=== PATIENT | male | born 1970 | race Caucasian/White ===

== ENCOUNTER 2017-10-31 19:25 | Emergency (ER) | payer MEDICAID ==
[~2017-10-31] VITALS: Ht 182.9 cm; Wt 102.1 kg
[~2017-10-31 19:25] MED LIST: ALLO300T2 PO; ALPR1TAB10 PO; ATEN100T PO; BACL20TA PO; CLOP75TA41 PO; DICL50TA2 PO; FENO160T8 PO; GABA300C10 PO; LISI-646 PO
[2017-10-31 19:32] VITALS: BP 138/94
== END 2017-10-31 22:53 | disposition home or self-care (01) ==
LOC: EDBD 19:25 → ER 19:25
DX: S00.33XA Contusion of nose, initial encounter (principal); I10 Essential (primary) hypertension; E78.5 Hyperlipidemia, unspecified; M10.9 Gout, unspecified; F17.210 Nicotine dependence, cigarettes, uncomplicated; F12.10 Cannabis abuse, uncomplicated
CPT/HCPCS: 70450; 70486; 72125

== ENCOUNTER 2018-02-23 14:36 | Inpatient (IN) | payer MEDICAID ==
[~2018-02-23] VITALS: Ht 182.9 cm; Wt 100.5 kg
[2018-02-23 15:34] LABS: Basophils # (auto) 0.1 uL; Basophils % (auto) 0.9 % (0.0-2.0); Eosinophils # (auto) 0.2 uL; Eosinophils % (auto) 1.7 % (0.0-7.0); Hematocrit 51.9 % (41.0-53.0); Hemoglobin 17.5 g/dL (13.5-17.5); Lymphocytes # (auto) 1.7 uL; Lymphocytes % (auto) 15.7 % (10.0-50.0); Mean Corpuscular Hemoglobin 29.3 pg (28.0-32.0); Mean Corpuscular Hgb Conc. 33.7 g/dL (32.0-36.0); Mean Corpuscular Volume 87.1 fL (80.0-100.0); Monocytes # (auto) 0.7 uL; Monocytes % (auto) 6.2 % (0.0-12.0); Neutrophils # (auto) 8.1 uL; Neutrophils % (auto) 75.5 % (37.0-80.0); Nucleated Red Blood Cells % 0.1 %; Platelet Count (auto) 274 10^3/uL (140-450); Red Blood Cells 5.97 10^6/uL (4.5-5.90); Red Cell Distribution Width 15.6 % (11.8-14.3); White Blood Cell 10.8 10^3/uL (4.4-10.8)
[2018-02-23] MEDS ORDERED: cloNIDine HCL 0.1 MG TAB PO ONE (15:45)
[2018-02-23] MEDS ORDERED: MORPHINE SULFATE 4 MG/ML SYR/VIAL IV ONE ×2 (15:45→18:00)
[2018-02-23] MEDS ORDERED: ONDANSETRON HCL 4 MG/2 ML VIAL IV ONE ×2 (15:45→18:00)
[2018-02-23] MEDS ORDERED: ASPirin 81 mg TAB PO ONE (15:45)
[2018-02-23 15:49] LABS: INR 0.95 (0.9-1.15); Partial Thromboplastin Time 28.5 sec (23.78-33.04); Prothrombin Time 10.2 sec (9.27-12.13)
[2018-02-23 15:52] LABS: Alanine Aminotransferase 30 U/L (16-61); Albumin 4.2 g/dL (3.4-5.0); Anion Gap 15 (5-15); Aspartate Aminotransferase 22 U/L (15-37); BUN/Creatinine Ratio 12.6; Blood Urea Nitrogen 15 mg/dL (7-18); Carbon Dioxide 21 mmol/L (21-32); Chloride 106 mmol/L (98-107); GFR African American 84 mL/min; GFR Non-African American 69 mL/min; Glucose 103 mg/dL (74-106); Magnesium 2.2 mg/dL (1.6-2.6); Potassium 3.6 mmol/L (3.5-5.1); Sodium 142 mmol/L (136-145)
[2018-02-23 15:57] LABS: Alkaline Phosphatase 79 U/L (45-117); Bilirubin, Total 0.5 mg/dL (0.2-1.0); Total Protein 7.9 g/dL (6.4-8.2)
[2018-02-23] MEDS ORDERED: hydrALAZINE HCL 20 MG/ML VL IV ONE (17:00)
[2018-02-23 17:28] LABS: Amphetamine Screen, Urine NEGATIVE (NEGATIVE); Barbiturate Scree,Urine NEGATIVE (NEGATIVE); Benzodiazephine Screen, Urine NEGATIVE (NEGATIVE); Cannabinoid Screen, Urine POSITIVE (NEGATIVE); Cocaine Screen, Urine NEGATIVE (NEGATIVE); Opiate Scree,Urine NEGATIVE (NEGATIVE); Phencyclidine Screen, Urine NEGATIVE (NEGATIVE)
[2018-02-23] MEDS ORDERED: NITROGLYCERIN 0.4 MG SL TAB SL PRN ×2 (19:00)
[2018-02-23] MEDS ORDERED: ZOLPIDEM TARTRATE 5 MG TAB PO PRN (19:00)
[2018-02-23] MEDS ORDERED: LORazepam 0.5 MG TAB PO PRN (19:00)
[2018-02-23] MEDS ORDERED: ALUM & MAG HYDROX-SIMETH LIQ(MAALOX) 30 ML PO ONE (19:00)
[2018-02-23] MEDS ORDERED: ACETAMINOPHEN 325 MG TAB PO PRN (19:00)
[2018-02-23] MEDS ORDERED: ONDANSETRON HCL 4 MG/2 ML VIAL IV PRN (19:00)
[2018-02-23] MEDS ORDERED: CYCLOBENZAPRINE HCL 10 MG TAB PO PRN (19:00)
[2018-02-23] MEDS ORDERED: ASPirin 81 mg TAB PO SCH (19:08)
[2018-02-23] MEDS ORDERED: cloNIDine HCL 0.1 MG TAB PO PRN (19:15)
[2018-02-23] MEDS ORDERED: LABETALOL HCL 5 MG/ML ML 20ML VIAL IV PRN (19:15)
[2018-02-23] MEDS: SODIUM CHLOR 0.9% PF (SALINE LOCK) 10ML VIAL/SYR IV SCH (21:22)
[2018-02-23] MEDS: GABAPENTIN 300 MG CAP PO SCH (21:23)
[2018-02-23 21:50] VITALS: BP 126/81
[2018-02-23] MEDS ORDERED: FENOFIBRATE 134 MG PO SCH (22:00)
[2018-02-23] MEDS ORDERED: ATORVASTATIN 20 MG TAB PO SCH (22:00)
[2018-02-23 22:30] VITALS: BP 126/81
[2018-02-23] MEDS: HYDROmorphone HCL 2 MG/ML VL IV PRN (22:36)
[2018-02-24] MEDS: HYDROmorphone HCL 2 MG/ML VL IV PRN ×3 (03:58→15:16)
[2018-02-24 05:50] VITALS: BP 158/93
[2018-02-24] MEDS: GABAPENTIN 300 MG CAP PO SCH ×2 (06:00→15:16)
[2018-02-24] MEDS: SODIUM CHLOR 0.9% PF (SALINE LOCK) 10ML VIAL/SYR IV SCH ×2 (06:10→15:16)
[2018-02-24 07:07] LABS: Basophils # (auto) 0.1 uL; Basophils % (auto) 1.2 % (0.0-2.0); Eosinophils # (auto) 0.5 uL; Hematocrit 49.1 % (41.0-53.0); Hemoglobin 16.4 g/dL (13.5-17.5); Lymphocytes # (auto) 2.1 uL; Lymphocytes % (auto) 23.5 % (10.0-50.0); Mean Corpuscular Hemoglobin 29.5 pg (28.0-32.0); Mean Corpuscular Hgb Conc. 33.4 g/dL (32.0-36.0); Mean Corpuscular Volume 88.2 fL (80.0-100.0); Monocytes # (auto) 0.6 uL; Monocytes % (auto) 6.6 % (0.0-12.0); Neutrophils # (auto) 5.8 uL; Neutrophils % (auto) 63.7 % (37.0-80.0); Nucleated Red Blood Cells % 0.1 %; Platelet Count (auto) 210 10^3/uL (140-450); Red Blood Cells 5.57 10^6/uL (4.5-5.90); Red Cell Distribution Width 15.2 % (11.8-14.3); White Blood Cell 9.1 10^3/uL (4.4-10.8)
[2018-02-24 07:30] LABS: Albumin 3.7 g/dL (3.4-5.0); Calcium 8.8 mg/dL (8.5-10.1); Magnesium 2.1 mg/dL (1.6-2.6); Potassium 3.3 mmol/L (3.5-5.1)
[2018-02-24 07:37] LABS: BUN/Creatinine Ratio 12.1; Bilirubin, Total 0.9 mg/dL (0.2-1.0)
[2018-02-24 08:30] VITALS: BP 135/88
[2018-02-24] MEDS ORDERED: LISINOPRIL 20 MG TAB PO SCH (10:00)
[2018-02-24] MEDS ORDERED: ATENOLOL 50 MG TAB PO SCH (10:00)
[2018-02-24] MEDS ORDERED: CLOPIDOGREL BISULFATE 75 MG TAB PO SCH (10:00)
[2018-02-24] MEDS ORDERED: ASPirin 81 mg TAB PO SCH (10:00)
[2018-02-24] MEDS ORDERED: DOCUSATE SOD 100 MG CAP PO SCH (10:00)
[2018-02-24] MEDS ORDERED: ALLOPURINOL 300 MG TAB PO SCH (10:00)
[2018-02-24 12:22] VITALS: BP 146/89
[2018-02-24] MEDS ORDERED: POTASSIUM CHL 10 Meq TABLET PO ONE (14:00)
[2018-02-24 14:27] VITALS: BP 135/88
== END 2018-02-24 15:40 | disposition home or self-care (01) | DRG 198 ==
LOC: ER 14:37 → TELE 14:38 → TELE-EAST 21:50
PROVIDERS: ADMIT Internal Medicine; ATTEND Internal Medicine
DX: R07.89 Other chest pain (principal); I25.10 Atherosclerotic heart disease of native coronary artery without angina pectoris; E78.5 Hyperlipidemia, unspecified; I10 Essential (primary) hypertension; E87.6 Hypokalemia; F17.210 Nicotine dependence, cigarettes, uncomplicated; F32.9 Major depressive disorder, single episode, unspecified; F41.9 Anxiety disorder, unspecified; I25.2 Old myocardial infarction; M10.9 Gout, unspecified; Z95.5 Presence of coronary angioplasty implant and graft; Z88.6 Allergy status to analgesic agent; F14.90 Cocaine use, unspecified, uncomplicated; F12.90 Cannabis use, unspecified, uncomplicated
CPT/HCPCS: 36415; 71045; 80053; 80061; 80307; 83735; 83880; 84443; 84484; 85025; 85610; 85730; 93005; 93306; 94761; 96374; 96375; 99291; J2405

== ENCOUNTER 2018-03-10 00:04 | Emergency (ER) | payer MEDICAID ==
[~2018-03-10] VITALS: Ht 182.9 cm; Wt 95.3 kg
[2018-03-10 00:57] LABS: Basophils # (auto) 0.1 uL; Basophils % (auto) 1.4 % (0.0-2.0); Eosinophils # (auto) 0.3 uL; Eosinophils % (auto) 3.7 % (0.0-7.0); Hematocrit 46.6 % (41.0-53.0); Hemoglobin 15.4 g/dL (13.5-17.5); Lymphocytes # (auto) 2.2 uL; Lymphocytes % (auto) 23.7 % (10.0-50.0); Mean Corpuscular Hemoglobin 28.9 pg (28.0-32.0); Mean Corpuscular Hgb Conc. 33.1 g/dL (32.0-36.0); Mean Corpuscular Volume 87.4 fL (80.0-100.0); Monocytes # (auto) 0.6 uL; Monocytes % (auto) 6.3 % (0.0-12.0); Neutrophils # (auto) 5.9 uL; Neutrophils % (auto) 64.9 % (37.0-80.0); Platelet Count (auto) 269 10^3/uL (140-450); Red Blood Cells 5.33 10^6/uL (4.5-5.90); Red Cell Distribution Width 15.2 % (11.8-14.3); White Blood Cell 9.2 10^3/uL (4.4-10.8)
[2018-03-10 01:05] VITALS: BP 146/71
[2018-03-10 01:15] LABS: Alanine Aminotransferase 24 U/L (16-61); Albumin 3.5 g/dL (3.4-5.0); Anion Gap 10 (5-15); Aspartate Aminotransferase 19 U/L (15-37); BUN/Creatinine Ratio 12.1; Blood Urea Nitrogen 14 mg/dL (7-18); Calcium 8.5 mg/dL (8.5-10.1); Carbon Dioxide 22 mmol/L (21-32); Chloride 110 mmol/L (98-107); GFR African American 86 mL/min; GFR Non-African American 71 mL/min; Glucose 104 mg/dL (74-106); Magnesium 2.4 mg/dL (1.6-2.6); Potassium 3.4 mmol/L (3.5-5.1); Sodium 142 mmol/L (136-145)
[2018-03-10 01:20] LABS: Alkaline Phosphatase 76 U/L (45-117); Bilirubin, Total 0.4 mg/dL (0.2-1.0); Total Protein 6.6 g/dL (6.4-8.2)
[2018-03-10 04:24] LABS: Alcohol, Urine < 3.0 mg/dL (0-5); Amphetamine Screen, Urine NEGATIVE (NEGATIVE); Barbiturate Scree,Urine NEGATIVE (NEGATIVE); Benzodiazephine Screen, Urine NEGATIVE (NEGATIVE); Cannabinoid Screen, Urine POSITIVE (NEGATIVE); Cocaine Screen, Urine NEGATIVE (NEGATIVE); Opiate Scree,Urine NEGATIVE (NEGATIVE); Phencyclidine Screen, Urine NEGATIVE (NEGATIVE)
== END 2018-03-10 07:21 | disposition home or self-care (01) ==
LOC: EDBD 00:04 → ER 00:04
DX: R07.89 Other chest pain (principal); G92 Toxic encephalopathy; I10 Essential (primary) hypertension; E78.5 Hyperlipidemia, unspecified; F17.210 Nicotine dependence, cigarettes, uncomplicated; F12.10 Cannabis abuse, uncomplicated; F14.10 Cocaine abuse, uncomplicated; Z79.899 Other long term (current) drug therapy; Z98.61 Coronary angioplasty status
CPT/HCPCS: 36415; 71045; 80053; 80307; 80320; 83735; 84484; 85025; 93005

== ENCOUNTER 2020-03-12 03:27 | Observation (INO) | payer MEDICAID ==
[~2020-03-12] VITALS: Ht 182.9 cm; Wt 95.3 kg
[2020-03-12 04:17] LABS: Basophils # (auto) 0.1 10 ^3/uL (0-0.2); Basophils % (auto) 1.1 % (0.0-2.0); Eosinophils # (auto) 0.3 10 ^3/uL (0-0.8); Eosinophils % (auto) 3.8 % (0.0-7.0); Hematocrit 43.1 % (41.0-53.0); Hemoglobin 14.1 g/dL (13.5-17.5); Lymphocytes # (auto) 1.3 10 ^3/uL (0.4-5.4); Lymphocytes % (auto) 16.3 % (10.0-50.0); Mean Corpuscular Hemoglobin 28.1 pg (28.0-32.0); Mean Corpuscular Hgb Conc. 32.7 g/dL (32.0-36.0); Mean Corpuscular Volume 86.1 fL (80.0-100.0); Monocytes # (auto) 0.6 10 ^3/uL (0-1.3); Monocytes % (auto) 7.5 % (0.0-12.0); Neutrophils # (auto) 5.9 10 ^3/uL (1.6-8.6); Neutrophils % (auto) 71.3 % (37.0-80.0); Platelet Count (auto) 257 10^3/uL (140-450); Red Cell Distribution Width 16.2 % (11.8-14.3); White Blood Cell 8.3 10^3/uL (4.4-10.8)
[2020-03-12 04:38] LABS: Albumin 3.8 g/dL (3.4-5.0); Anion Gap 7 (5-15); Blood Urea Nitrogen 19 mg/dL (7-18); Calcium 8.7 mg/dL (8.5-10.1); Carbon Dioxide 27 mmol/L (21-32); Chloride 105 mmol/L (98-107); Glucose 91 mg/dL (74-106); Potassium 3.3 mmol/L (3.5-5.1); Sodium 139 mmol/L (136-145)
[2020-03-12 04:45] LABS: Alanine Aminotransferase 17 U/L (16-61); Alkaline Phosphatase 90 U/L (45-117); Aspartate Aminotransferase 23 U/L (15-37); BUN/Creatinine Ratio 16.4; Bilirubin, Total 0.7 mg/dL (0.2-1.0); GFR African American 85 mL/min; GFR Non-African American 71 mL/min; Total Protein 7.1 g/dL (6.4-8.2)
[2020-03-12 05:17] LABS: INR 1.01 (0.9-1.15); Partial Thromboplastin Time 28.6 sec (23.0-31.2)
[2020-03-12] MEDS ORDERED: MORPHINE SULF INJ 2 MG/ML SYRINGE 1ML IV PRN (06:30)
[2020-03-12] MEDS ORDERED: NITROGLYCERIN 0.4 MG SL TAB SL PRN (06:30)
[2020-03-12] MEDS ORDERED: SODIUM CHLORIDE 0.9% 1,000 ML IV ONE (06:30)
[2020-03-12] MEDS ORDERED: ONDANSETRON HCL 4 MG/2 ML VIAL IV PRN (06:30)
[2020-03-12] MEDS ORDERED: ALLOPURINOL 300 MG TAB PO PRN (06:45)
[2020-03-12] MEDS ORDERED: ALPRAZolam 0.5 MG TAB PO PRN (06:45)
[2020-03-12] MEDS ORDERED: BACLOFEN 10 MG TAB PO PRN (06:45)
[2020-03-12 07:33] LABS: Cholesterol 172 mg/dL (< 200); Triglycerides 95 mg/dL (< 150)
[2020-03-12 07:36] LABS: HDL Cholesterol 44 mg/dL (40-59); LDL Cholesterol 126 mg/dL (< 100)
[2020-03-12] MEDS: POTASSIUM CHL 20MEQ/100ML 100 ML IV SCH ×2 (09:26→10:08)
[2020-03-12] MEDS ORDERED: ATORVASTATIN 20 MG TAB PO SCH (10:00)
[2020-03-12] MEDS ORDERED: ENOXAPARIN SOD 40 MG/0.4 ML SYRINGE SC SCH (10:00)
[2020-03-12] MEDS ORDERED: ASPirin-EC 81 mg tab PO SCH (10:00)
[2020-03-12] MEDS ORDERED: GABAPENTIN 300 MG CAP PO SCH (14:00)
[2020-03-12] MEDS ORDERED: HALOPERIDOL LACTATE 5 MG/ML INJ VIAL ONE (14:13)
[2020-03-12] MEDS ORDERED: LORazepam 2MG/ML-1ML VIAL ONE (14:14)
[2020-03-12] MEDS ORDERED: diphenhdrAMINE HCL 50 MG/1 ML VL ONE (14:14)
--- NOTE | 2020-03-12 15:11 | NUR ---
assessment Patient is a 49 year old male who is alert and oriented. Per patient he is homeless. I found patient placement at [facility]. Patient did intake interview and then refused placement due to bible study requirement. Patient will return to homeless rather than accept placement at [facility]. I also contacted [facility] and they have no bed availability. I contacted [facility] and we would have to call back on and patient will have to have ID. Patient has no ID. Patient has signed homeless waiver and it has been placed in his chart. Betsy Almeida will provide patient with shirt, pants, and shoes. Patient has also been provided with [facility] address and phone number Patient has been provided with homeless resources for government agencies such as [facility], [facility] [employer], [facility], ad [facility], Also part of the resource has information on various homeless shelters, behavioral health and crisis center, various churches, and laundry facilities. Patient verbalized understanding and agreed to discharge plan. Addendum: 03/12/20 at 1516 by Betsy PATEL Amended: Links added.
[2020-03-12] MEDS ORDERED: CLOPIDOGREL BISULFATE 75 MG TAB PO SCH (18:00)
[2020-03-12] MEDS ORDERED: ATENOLOL 25 MG TAB PO SCH (18:00)
[2020-03-12] MEDS ORDERED: LISINOPRIL 20 MG TAB PO SCH (18:00)
[2020-03-12 19:23] VITALS: BP 109/62
[2020-03-13 06:02] LABS: Basophils # (auto) 0.1 10 ^3/uL (0-0.2); Basophils % (auto) 0.9 % (0.0-2.0); Eosinophils # (auto) 0.3 10 ^3/uL (0-0.8); Eosinophils % (auto) 4.2 % (0.0-7.0); Hematocrit 40.9 % (41.0-53.0); Hemoglobin 13.5 g/dL (13.5-17.5); Lymphocytes # (auto) 1.2 10 ^3/uL (0.4-5.4); Lymphocytes % (auto) 15.2 % (10.0-50.0); Mean Corpuscular Hemoglobin 28.4 pg (28.0-32.0); Mean Corpuscular Hgb Conc. 32.9 g/dL (32.0-36.0); Mean Corpuscular Volume 86.3 fL (80.0-100.0); Monocytes # (auto) 0.5 10 ^3/uL (0-1.3); Monocytes % (auto) 6.8 % (0.0-12.0); Neutrophils # (auto) 5.5 10 ^3/uL (1.6-8.6); Neutrophils % (auto) 72.9 % (37.0-80.0); Nucleated Red Blood Cells % 0.1 %; Platelet Count (auto) 208 10^3/uL (140-450); Red Blood Cells 4.74 10^6/uL (4.5-5.90); Red Cell Distribution Width 16.3 % (11.8-14.3); White Blood Cell 7.6 10^3/uL (4.4-10.8)
[2020-03-13 06:11] LABS: Albumin 3.1 g/dL (3.4-5.0); Calcium 8.3 mg/dL (8.5-10.1); Potassium 3.4 mmol/L (3.5-5.1)
[2020-03-13 06:15] LABS: BUN/Creatinine Ratio 14.6; Bilirubin, Total 0.8 mg/dL (0.2-1.0); Total Protein 6.1 g/dL (6.4-8.2)
== END 2020-03-13 12:00 | disposition home or self-care (01) ==
LOC: ER 03:27 → TELE 03:28
PROVIDERS: ADMIT Hospitalist; ATTEND Hospitalist
DX: R07.89 Other chest pain (principal); I10 Essential (primary) hypertension; F41.9 Anxiety disorder, unspecified; M10.9 Gout, unspecified; G62.9 Polyneuropathy, unspecified; G89.29 Other chronic pain; M54.5 Low back pain; E78.5 Hyperlipidemia, unspecified; I25.10 Atherosclerotic heart disease of native coronary artery without angina pectoris; F32.9 Major depressive disorder, single episode, unspecified; F17.210 Nicotine dependence, cigarettes, uncomplicated; Z98.61 Coronary angioplasty status; Z59.0 Homelessness; Z79.82 Long term (current) use of aspirin; Z79.899 Other long term (current) drug therapy
CPT/HCPCS: 36415; 71045; 80053; 80061; 83036; 83880; 84484; 85025; 85610; 85730; 93005; 93306; 96360; 96361; 96372; 99285; G0378; J1200; J1630; J1650; J2060; J3480